=== PATIENT | female | born 2000 | race African-American/Black ===

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

== ENCOUNTER 2019-03-13 06:10 | Emergency (ER) | payer OTHER, SELFPAY ==
[~2019-03-13] VITALS: Ht 160 cm; Wt 74.8 kg
[~2019-03-13 06:10] MED LIST: AMOX500C PO; HYDR-3164 PO
[2019-03-13 06:15] VITALS: BP 123/65
[2019-03-13] MEDS ORDERED: DEXAMETHASONE 4 MG TABLET PO ONE (07:00)
[2019-03-13] MEDS ORDERED: AZITHROMYCIN 250 MG TABLET. PO ONE (07:00)
[2019-03-13] MEDS ORDERED: cefTRIAXone IM 250 MG VIAL IM ONE (07:00)
--- NOTE | 2019-03-13 07:01 | PHYS DOC ---
Past Medical History Past Medical History: Other Additional Past Medical Histor: LUPUS,TBI Past Surgical History: No Surgical History Additional Information: Nonsmoking Alcohol Use: None Drug Use: None Adult General Chief Complaint Chief Complaint: FACE PAIN HPI HPI 18-year-old female presents with report of three-day history of vaginal odor and slight discharge. Patient concern for possible STD. Denies fever or chills. Denies bleeding. Reports she is unsure regarding . Reports last menstrual period approximately 3 weeks ago. Patient also reports past medical history of lupus and for the last 3 weeks has noticed some slight discoloration of her face with some swelling and discomfort. Reports right greater than left. Patient reports she just relocated to the area and is not on her typical lupus medications. Denies any leg swelling or calf tenderness. Denies chest pain or shortness of breath. Denies trauma. Patient also reports irritation to left axilla which has happened in past and is always associated with shaving. Denies fever/chills. Review of Systems Review of Systems Constitutional: Denies fever or chills [] Eyes: Denies change in visual acuity, redness, or eye pain [] HENT: Denies nasal congestion or sore throat [] Respiratory: Denies cough or shortness of breath [] Cardiovascular: Denies chest pain or palpitation GI: Denies abdominal pain, nausea, vomiting, or diarrhea [] /MANAGER DIVISION: Denies dysuria or hematuria; reports vaginal discharge and odor Musculoskeletal: Denies back pain or joint pain [] Integument: Reports racial rash and swelling Neurologic: Denies headache, focal weakness or sensory changes [] Complete systems were reviewed and found to be within normal limits, except as documented in this note. Current Medications Current Medications Current Medications Medications (Trade) Dose Ordered Sig/Inés Start Time Stop Time Status Last Admin Dose Admin Azithromycin (Zithromax) 1,000 mg 1X ONCE 03/13/19 07:00 03/13/19 07:01 DC 03/13/19 07:03 1,000 MG Ceftriaxone Sodium (Rocephin Im) 250 mg 1X ONCE 03/13/19 07:00 03/13/19 07:01 DC 03/13/19 07:03 250 MG Dexamethasone (Decadron) 10 mg 1X ONCE 03/13/19 07:00 03/13/19 07:01 DC 03/13/19 07:03 10 MG Metronidazole (Flagyl) 500 mg 1X ONCE 03/13/19 07:45 03/13/19 07:47 DC 03/13/19 07:43 500 MG Neomycin/ Polymyxin/ Bacitracin (Triple Antibiotic Ointment) 1 pkt 1X ONCE 03/13/19 07:45 03/13/19 07:47 DC 03/13/19 07:43 1 PKT Allergies Allergies Allergies Coded Allergies Type Severity Reaction Last Updated Verified No Known Drug Allergies 01/10/18 No Physical Exam Physical Exam Constitutional: Well developed, well nourished, no acute distress, non-toxic appearance. [] HENT: Normocephalic, atraumatic, oropharynx moist Eyes: Conjunctiva normal, no discharge. [] Neck: Normal range of motion, no tenderness, supple Cardiovascular: Heart rate normal with regular rhythm Lungs & Thorax: Bilateral breath sounds clear to auscultation [] Abdomen: Soft, no tenderness Pelvic: Sales Development Consultant RN, external genitalia normal, white creamy discharge noted in vaginal vault, NO cervicitis noted, no CMT, no adnexal tenderness Skin: Warm, dry, no erythema, mild malar rash noted, left axillary superficial ulceration- no surrounding erythema, facial and tongue piercings noted Back: No tenderness, no CVA tenderness. [] Extremities: No tenderness, ROM intact, no edema. [] Neurologic: Alert and oriented X 3, no focal deficits noted. [] Psychologic: Affect normal, judgement normal, mood normal. [] Current Patient Data Vital Signs Vital Signs Date Time Temp Pulse Resp B/P (MAP) Pulse Ox O2 Delivery O2 Flow Rate FiO2 03/13/19 06:15 97.9 87 16 123/65 (84) 100 Room Air 97.9 Lab Values Laboratory Tests Test 03/13/19 06:30 03/13/19 06:36 Urine Collection Type Unknown Urine Color Yellow Urine Clarity Clear Urine pH 6.0 Urine Specific [place] 1.025 Urine Protein Negative mg/dL (NEG-TRACE) Urine Glucose (UA) Negative mg/dL (NEG) Urine Ketones (Stick) Negative mg/dL (NEG) Urine Blood Small (NEG) Urine Nitrite Negative (NEG) Urine Bilirubin Negative (NEG) Urine Urobilinogen Dipstick 1.0 mg/dL (0.2 mg/dL) Urine Leukocyte Esterase Large (NEG) Urine RBC 3-5 /HPF (0-2) Urine WBC 20-40 /HPF (0-4) Urine Squamous Epithelial Cells Mod /LPF Urine Bacteria 0 /HPF (0-FEW) Urine Trichomonas Present POC Urine HCG, Qualitative Hcg negative (Negative) Microbiology 03/13/19 Wet Prep - Final, Complete EKG EKG [] Radiology/Procedures Radiology/Procedures [] Course & Med Decision Making Course & Med Decision Making Pertinent Lab studies reviewed. (See chart for details) Patient presents with report of facial rash concerning for lupus flare. Empiric steroid provided. Patient also reports concern for possible STD given some vaginal discharge and foul odor. Pelvic exam performed. Chlamydia/Gonorrhea cultures pending. Empiric antibiotics given. Wet mount positive for BV. Flagyl provided. UA with signs of infection. Rx for empiric antibiotics given. Upreg negative. NO CMT or adnexal tenderness noted. Sign of possible folliculitis noted to left axilla. Patient reports lesions occur after shaving. No surrounding erythema and no fluctuance noted. Wound cleaned and dressed with empiric antibiotic ointment applied. Patient stable for discharge with outpatient follow-up with PCP/MANAGER DIVISION. Discussed findings and plan with patient, who acknowledges understanding and agreement. Dragon Disclaimer Dragon Disclaimer This electronic medical record was generated, in whole or in part, using a voice recognition dictation system. Departure Departure Impression: Primary Impression: Bacterial vaginosis Additional Impressions: UTI (urinary tract infection) SLE exacerbation Folliculitis Disposition: HOME, SELF-CARE Condition: STABLE Referrals: UNKNOWN PCP NAME (PCP) Patient Instructions: Bacterial Vaginosis, [id number], Folliculitis, Lupus, Urinary Tract Infection, [id number] Scripts Prednisone (PREDNISONE) 20 Mg Tablet 2 TAB PO DAILY, #8 TAB Start this medication tomorrow. Prov: JORDY RIVAS DO 03/13/19 Metronidazole (FLAGYL) 500 Mg Tablet 500 MG PO BID, #14 TAB Prov: JORDY RIVAS DO 03/13/19 Cephalexin (KEFLEX) 500 Mg Capsule 500 MG PO TID for 7 Days, #21 CAP Prov: JORDY RIVAS DO 03/13/19 Problem Qualifiers Additional Impressions: UTI (urinary tract infection) Urinary tract infection type: acute cystitis Hematuria presence: without hematuria Qualified Codes: N30.00 - Acute cystitis without hematuria JORDY RIVAS DO March 13, 2019 07:01
[2019-03-13 07:06] LABS: BILIRUBIN,URINE NEGATIVE (NEG); CLARITY,URINE CLEAR; COLOR,URINE YELLOW; NITRITE,URINE NEGATIVE (NEG); PROTEIN,URINE NEGATIVE (NEG-TRACE)
[2019-03-13 07:21] LABS: WBC,URINE 20-40 /HPF (0-4)
[2019-03-13 07:22] LABS: BACTERIA,URINE 0 /HPF (0-FEW); SQUAMOUS EPITHELIAL CELL,UR MOD /LPF
[2019-03-13 07:23] LABS: TRICHOMONAS,URINE PRESENT
[2019-03-13] MEDS ORDERED: CEPH-264 PO (07:38)
[2019-03-13] MEDS ORDERED: PRED20TA PO (07:38)
[2019-03-13] MEDS ORDERED: METR500T PO (07:38)
[2019-03-13] MEDS ORDERED: metroNIDAZOLE 500 MG TABLET PO ONE (07:45)
[2019-03-13] MEDS ORDERED: NEOMY/BACITR/POLYMYXIN OINT PACKET. TP ONE (07:45)
[2019-03-14 14:15] LABS: GC PROBE Negative (Negative)
== END 2019-03-13 07:45 | disposition home or self-care (01) ==
LOC: ER 06:10
DX: N30.00 Acute cystitis without hematuria (principal); N76.0 Acute vaginitis; B96.89 Other specified bacterial agents as the cause of diseases classified elsewhere; M32.8 Other forms of systemic lupus erythematosus; L73.8 Other specified follicular disorders
CPT/HCPCS: 81001; 81025; 87086; 87491; 87591; 96372; 99284; J0696; J8540; Q0111; Q0144

== ENCOUNTER 2019-04-27 13:54 | Emergency (ER) | payer SELFPAY ==
[~2019-04-27] VITALS: Ht 160 cm; Wt 74.8 kg
[~2019-04-27 13:54] MED LIST changes: +CEPH-264 PO; +METR500T PO; +PRED20TA PO
[2019-04-27 14:14] VITALS: BP 121/80
[2019-04-27] MEDS ORDERED: PRED20TA PO (14:40)
--- NOTE | 2019-04-27 14:40 | PHYS DOC ---
Past Medical History Past Medical History: Other Additional Past Medical Histor: LUPUS,TBI Past Surgical History: No Surgical History Alcohol Use: None Drug Use: None Adult General Chief Complaint Chief Complaint: OTHER COMPLAINTS HPI HPI Patient is a 18 year old who presents with which she states is lupus flareup. Has butterfly rash on her cheeks bilaterally. States she does not have PCP or specialist follow up. Has been dealing with a lupus flareup since end of March. Denies pain at this time. Took a course of prednisone end of march that helped symptoms. Review of Systems Review of Systems Constitutional: Denies fever or chills [] Eyes: Denies change in visual acuity, redness, or eye pain [] HENT: Denies nasal congestion or sore throat [] Respiratory: Denies cough or shortness of breath [] Cardiovascular: No additional information not addressed in HPI [] GI: Denies abdominal pain, nausea, vomiting, bloody stools or diarrhea [] : Denies dysuria or hematuria [] Musculoskeletal: Denies back pain or joint pain [] Integument: Reports rash or skin lesions [] Neurologic: Denies headache, focal weakness or sensory changes [] Endocrine: Denies polyuria or polydipsia [] Complete systems were reviewed and found to be within normal limits, except as documented in this note. Allergies Allergies Allergies Coded Allergies Type Severity Reaction Last Updated Verified No Known Drug Allergies 01/10/18 No Physical Exam Physical Exam Constitutional: Well developed, well nourished, no acute distress, non-toxic appearance. [] HENT: Normocephalic, atraumatic, bilateral external ears normal, oropharynx moist, no oral exudates, nose normal. [] Eyes: PERRLA, EOMI, conjunctiva normal, no discharge. [] Neck: Normal range of motion, no tenderness, supple, no stridor. [] Cardiovascular:Heart rate regular rhythm, no murmur [] Lungs & Thorax: Bilateral breath sounds clear to auscultation [] Abdomen: Bowel sounds normal, soft, no tenderness, no masses, no pulsatile masses. [] Skin: Warm, dry, no erythema, butterfly rash on cheeks. Back: No tenderness, no CVA tenderness. [] Extremities: No tenderness, no cyanosis, no clubbing, ROM intact, no edema. [] Neurologic: Alert and oriented X 3, normal motor function, normal sensory function, no focal deficits noted. [] Psychologic: Affect normal, judgement normal, mood normal. [] Current Patient Data Vital Signs Vital Signs Date Time Temp Pulse Resp B/P (MAP) Pulse Ox O2 Delivery O2 Flow Rate FiO2 04/27/19 14:14 98.4 75 16 121/80 (94) 96 Room Air 98.4 EKG EKG [] Radiology/Procedures Radiology/Procedures [] Course & Med Decision Making Course & Med Decision Making Pertinent Labs and Imaging studies reviewed. (See chart for details) Appears to be lupus flare. Will put on course of steroids. Discussed with patient the importance of following up with primary care. Dragon Disclaimer Dragon Disclaimer This electronic medical record was generated, in whole or in part, using a voice recognition dictation system. Departure Departure Impression: Primary Impression: Lupus Disposition: 01 HOME, SELF-CARE Condition: STABLE Referrals: NO PCP (PCP) Patient Instructions: Lupus Additional Instructions: Thank you for visiting [facility]. We appreciate you trusting us with your care. If any additional problems come up don't hesitate to return to visit us. Please follow up with your primary care provider so they can plan additional care if needed and know about the problem that you had. If symptoms worsen come back to the Emergency Department. Any concerning symptoms that start such as chest pain, shortness of Air, weakness or numbness on one side of the body, running high fevers or any other concerning symptoms return to the ER. Please fill your medications at any pharmacy and follow the prescription instructions. Please obtain and follow up with PCP this week. Scripts Prednisone (PREDNISONE) 20 Mg Tablet 1 TAB PO BID for 5 Days, #10 TAB Prov: JORDY DONIS APRN 04/27/19 JORDY DONIS APRN Apr 27, 2019 14:40
== END 2019-04-27 14:50 | disposition home or self-care (01) ==
LOC: ER 13:54
DX: M32.9 Systemic lupus erythematosus, unspecified (principal)
CPT/HCPCS: 99283

== ENCOUNTER 2019-09-06 13:27 | Emergency (ER) | payer SELFPAY ==
[~2019-09-06] VITALS: Ht 160 cm; Wt 79.4 kg
[2019-09-06 13:40] VITALS: BP 118/66
[2019-09-06 14:41] LABS: BILIRUBIN,URINE NEGATIVE (NEG); CLARITY,URINE CLEAR; COLOR,URINE YELLOW; NITRITE,URINE NEGATIVE (NEG); PH,URINE 6.5; PROTEIN,URINE NEGATIVE (NEG-TRACE)
[2019-09-06 14:51] LABS: SQUAMOUS EPITHELIAL CELL,UR MOD /LPF
[2019-09-06 14:53] LABS: BACTERIA,URINE MODERATE /HPF (0-FEW); WBC,URINE 20-40 /HPF (0-4)
--- NOTE | 2019-09-06 15:07 | RAD ---
EXAM: Obstetrics sonogram. HISTORY: Cramping and positive home test. TECHNIQUE: Transabdominal and transvaginal sonographic imaging of the pelvis was performed. COMPARISON: None. FINDINGS: The uterus measures 7.0 x 5.0 x 3.0 cm. The endometrial stripe measures 11 mm in thickness. No intrauterine gestational sac is seen. The ovaries are normal in size and demonstrate normal blood flow. There is a complex right ovarian cyst measuring 2.1 cm, likely hemorrhagic in etiology. There is trace pelvic free fluid. IMPRESSION: 1. Suspected 2.1 cm hemorrhagic right ovarian cyst. 2. Trace pelvic free fluid. 3. No evidence of an intrauterine gestation. This may be due to relative early gestation. Correlate with a beta-hCG level and obtained short-term sonographic follow-up to assess viability and exclude ectopic gestation. Electronically signed by: Jami Milan MD (09/06/2019 3:04 PM) [facility]
--- NOTE | 2019-09-06 15:21 | PHYS DOC ---
Past Medical History Past Medical History: Other Additional Past Medical Histor: LUPUS,TBI Past Surgical History: No Surgical History Alcohol Use: None Drug Use: None Adult General Chief Complaint Chief Complaint: TEST [facility] HPI Patient is a 19 year old AA female who presents to the ER with request for testing. Pt states she has taken 3 positive home tests prior to arrival. Her LMP was on 08/11/19. She currently denies any irregular vaginal discharge, vaginal bleeding, dysuria, increased urinary frequency, or hematuria. Pt also denies any fever, low back pain, nausea, vomiting, or diarrhea. Currently she complaints of pelvic pain that she describes as cramping. Pt rates the pain a 6/10 on the pain scale, she denies any alleviating factors. PT is 1, para 0. She does not have an OBGyn. All other ROS is neg unless otherwise noted in HPI. Review of Systems Review of Systems See Above Allergies Allergies Allergies Coded Allergies Type Severity Reaction Last Updated Verified No Known Drug Allergies 01/10/18 No Physical Exam Physical Exam See Above Constitutional: Well developed, well nourished, no acute distress, non-toxic appearance. [] HENT: Normocephalic, atraumatic, bilateral external ears normal, nose normal. [] Eyes: PERRLA, EOMI, conjunctiva normal, no discharge. [] Neck: Normal range of motion, no stridor. [] Cardiovascular:Heart rate regular rhythm, no murmur [] Lungs & Thorax: Bilateral breath sounds clear to auscultation [] Abdomen: Bowel sounds normal, soft, no tenderness, no masses, no pulsatile masses. [] Skin: Warm, dry, no erythema, no rash. [] Back: No tenderness, no CVA tenderness. [] Extremities: No cyanosis, ROM intact, no edema. [] Neurologic: Alert and oriented X 3, no focal deficits noted. [] Psychologic: Affect normal, judgement normal, mood normal. [] Current Patient Data Vital Signs Vital Signs Date Time Temp Pulse Resp B/P (MAP) Pulse Ox O2 Delivery O2 Flow Rate FiO2 09/06/19 13:40 98.3 67 16 118/66 (83) 100 Room Air 98.3 Lab Values Laboratory Tests Test 09/06/19 13:46 09/06/19 14:34 Urine Collection Type Unknown Urine Color Yellow Urine Clarity Clear Urine pH 6.5 Urine Specific [place] 1.025 Urine Protein Negative mg/dL (NEG-TRACE) Urine Glucose (UA) Negative mg/dL (NEG) Urine Ketones (Stick) Negative mg/dL (NEG) Urine Blood Negative (NEG) Urine Nitrite Negative (NEG) Urine Bilirubin Negative (NEG) Urine Urobilinogen Dipstick 1.0 mg/dL (0.2 mg/dL) Urine Leukocyte Esterase Large (NEG) Urine RBC 1-2 /HPF (0-2) Urine WBC 20-40 /HPF (0-4) Urine Squamous Epithelial Cells Mod /LPF Urine Bacteria Moderate /HPF (0-FEW) Urine Mucus Mod /LPF POC Urine HCG, Qualitative Hcg positive (Negative) EKG EKG [] Radiology/Procedures Radiology/Procedures PROCEDURE: OB <14 WKS W/TV EXAM: Obstetrics sonogram. HISTORY: Cramping and positive home test. TECHNIQUE: Transabdominal and transvaginal sonographic imaging of the pelvis was performed. COMPARISON: None. FINDINGS: The uterus measures 7.0 x 5.0 x 3.0 cm. The endometrial stripe measures 11 mm in thickness. No intrauterine gestational sac is seen. The ovaries are normal in size and demonstrate normal blood flow. There is a complex right ovarian cyst measuring 2.1 cm, likely hemorrhagic in etiology. There is trace pelvic free fluid. IMPRESSION: 1. Suspected 2.1 cm hemorrhagic right ovarian cyst. 2. Trace pelvic free fluid. 3. No evidence of an intrauterine gestation. This may be due to relative early gestation. Correlate with a beta-hCG level and obtained short-term sonographic follow-up to assess viability and exclude ectopic gestation.[] Course & Med Decision Making Course & Med Decision Making Pertinent Labs and Imaging studies reviewed. (See chart for details) 1517- Pt signed out AMA before results of UA and US could be discussed. [] Dragon Disclaimer Dragon Disclaimer This electronic medical record was generated, in whole or in part, using a voice recognition dictation system. Departure Departure Impression: Primary Impression: Left against medical advice Disposition: 07 AGAINST MEDICAL ADVICE Condition: STABLE Referrals: RADHA ABEBE Jr, MD, DANIELLE D ACCOUNT DEVELOPMENT MANAGER Sep 06, 2019 15:21
== END 2019-09-06 15:22 | disposition home or self-care (01) ==
LOC: ER 13:27
DX: Z32.00 Encounter for pregnancy test, result unknown (principal); S06.2X9D Diffuse traumatic brain injury with loss of consciousness of unspecified duration, subsequent encounter; M32.9 Systemic lupus erythematosus, unspecified
CPT/HCPCS: 76801; 76817; 81001; 81025; 87086; 99285

== ENCOUNTER 2019-09-21 19:42 | Emergency (ER) | payer OTHER ==
[~2019-09-21] VITALS: Ht 160 cm; Wt 76.2 kg
[2019-09-21 20:21] LABS: BILIRUBIN,URINE NEGATIVE (NEG); CLARITY,URINE CLOUDY; COLOR,URINE AMBER; NITRITE,URINE NEGATIVE (NEG); PROTEIN,URINE 30 mg/dL (NEG-TRACE)
[2019-09-21 20:28] LABS: SQUAMOUS EPITHELIAL CELL,UR MANY /LPF
[2019-09-21 20:30] LABS: BACTERIA,URINE MODERATE /HPF (0-FEW); RBC,URINE >40 /HPF (0-2); WBC,URINE >40 /HPF (0-4)
--- NOTE | 2019-09-21 22:04 | RAD ---
OB <14 WKS W/TV DATE: 09/21/2019 8:10 PM INDICATION: Bleeding. LMP 08/11/2019. COMPARISON: 09/06/2019. TECHNIQUE: Transabdominal ultrasonography of the pelvis was performed. Color Doppler and duplex were utilized as appropriate. FINDINGS: The uterus measures 8.2 x 5.4 x 4. Cm. There is living intrauterine gestation with heart rate of 109 beats per minute. There is small yolk sac present. [place]-rump length measurement of 0.37 cm corresponds with estimated ultrasound gestational age of 6 weeks and 0 days. EDC by ultrasound 05/16/2020. Trace pelvic fluid. The right ovary measures 3.9 x 1.9 x 2.4 cm. The left ovary measures 3.2 x 1.1 x 1.3 cm. No evidence of ovarian torsion. There is normal blood flow to both ovaries by color Doppler with arterial and venous waveforms detected. Right ovarian corpus luteal cyst. IMPRESSION: 1. Single living intrauterine gestation. 2. [place]-rump length corresponds with estimated ultrasound gestational age of 6 weeks and 0 days. Electronically signed by: Edmundo Landa MD (09/21/2019 10:01 PM) [facility]
[2019-09-21 22:05] VITALS: BP 106/61
[2019-09-21] MEDS ORDERED: CEPH500C PO (22:12)
--- NOTE | 2019-09-21 22:12 | PHYS DOC ---
Past Medical History Past Medical History: Other Additional Past Medical Histor: lupus, brain injury (PARAG WARE APRN) Past Surgical History: No Surgical History (PARAG WARE APRN) Alcohol Use: None Drug Use: None (PARAG WARE APRN) Attending Signature I have participated in the care of this patient and I have reviewed and agree with all pertinent clinical information above including history, exam, and recommendations. (MY TAN MD) Adult General Chief Complaint Chief Complaint: VAGINAL BLEEDING [facility] Patient is a 19 year old AA female, who presents to the emergency department with complaints of vaginal bleeding during . Patient states that she has had been having intermittent spotting since being diagnosed as at the beginning of the month. She states that she has not been bleeding heavily enough to saturate a pad only reports blood with wiping after urination. She denies any abdominal pain, cramping, or irregular vaginal discharge. She denies any vaginal odor. Currently denies any pain. Her LMP was on 08/11/19. Patient denies any nausea, vomiting, diarrhea, abdominal pain, low back pain, fever, hematuria, dysuria, or incontinence. She states that she has had increased urinary frequency. 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 All other ROS is neg unless otherwise noted in [facility]. (PAARG WARE APRN) Review of Systems Review of Systems See Above (PARAG WARE APRN) Allergies Allergies Allergies Coded Allergies Type Severity Reaction Last Updated Verified ibuprofen Allergy Intermediate 09/21/19 Yes (MY TAN MD) Physical Exam Physical Exam See Above Constitutional: Well developed, well nourished, no acute distress, non-toxic appearance. [] HENT: Normocephalic, atraumatic, bilateral external ears normal, nose normal. [] Eyes: PERRLA, EOMI, conjunctiva normal, no discharge. [] Neck: Normal range of motion, no stridor. [] Cardiovascular:Heart rate regular rhythm, no murmur [] Lungs & Thorax: Bilateral breath sounds clear to auscultation [] Abdomen: Bowel sounds normal, soft, no tenderness, no masses, no pulsatile masses. [] Skin: Warm, dry, no erythema, no rash. [] Back: No CVA tenderness. [] Extremities: No cyanosis, ROM intact, no edema. [] Neurologic: Alert and oriented X 3, no focal deficits noted. [] Psychologic: Affect normal, judgement normal, mood normal. [] (PARAG WARE APRN) Current Patient Data Vital Signs Vital Signs Date Time Temp Pulse Resp B/P (MAP) Pulse Ox O2 Delivery O2 Flow Rate FiO2 09/21/19 22:05 91 18 106/61 (76) 100 Room Air 09/21/19 19:50 98.8 98.8 (MY TAN MD) Lab Values Laboratory Tests Test 09/21/19 19:40 09/21/19 20:00 09/21/19 20:11 Urine Collection Type Unknown Urine Color [place] Urine Clarity Cloudy Urine pH 6.0 Urine Specific [place] >=1.030 Urine Protein 30 mg/dL (NEG-TRACE) Urine Glucose (UA) Negative mg/dL (NEG) Urine Ketones (Stick) >=80 mg/dL (NEG) Urine Blood Large (NEG) Urine Nitrite Negative (NEG) Urine Bilirubin Negative (NEG) Urine Urobilinogen Dipstick 1.0 mg/dL (0.2 mg/dL) Urine Leukocyte Esterase Moderate (NEG) Urine RBC >40 /HPF (0-2) Urine WBC >40 /HPF (0-4) Urine Squamous Epithelial Cells Many /LPF Urine Bacteria Moderate /HPF (0-FEW) Urine Mucus Marked /LPF Maternal Serum HCG Beta Subunit 71071 mIU/mL (0-5) H POC Urine HCG, Qualitative Hcg positive (Negative) (MY TAN MD) EKG EKG [] (PARAG WARE APRN) Radiology/Procedures Radiology/Procedures PROCEDURE: OB <14 WKS W/TV OB <14 WKS W/TV DATE: 09/21/2019 8:10 PM INDICATION: Bleeding. LMP 08/11/2019. COMPARISON: 09/06/2019. TECHNIQUE: Transabdominal ultrasonography of the pelvis was performed. Color Doppler and duplex were utilized as appropriate. FINDINGS: The uterus measures 8.2 x 5.4 x 4. Cm. There is living intrauterine gestation with heart rate of 109 beats per minute. There is small yolk sac present. [place]-rump length measurement of 0.37 cm corresponds with estimated ultrasound gestational age of 6 weeks and 0 days. EDC by ultrasound 05/16/2020. Trace pelvic fluid. The right ovary measures 3.9 x 1.9 x 2.4 cm. The left ovary measures 3.2 x 1.1 x 1.3 cm. No evidence of ovarian torsion. There is normal blood flow to both ovaries by color Doppler with arterial and venous waveforms detected. Right ovarian corpus luteal cyst. IMPRESSION: 1. Single living intrauterine gestation. 2. [place]-rump length corresponds with estimated ultrasound gestational age of 6 weeks and 0 days. [] (PARAG WARE APRN) Course & Med Decision Making Course & Med Decision Making Pertinent Labs and Imaging studies reviewed. (See chart for details) dx: UTI and , vaginal bleeding in the first trimester . UA is concerning for UTI, ultrasound revealed a single viable intrauterine measuring 6 weeks gestation with a due date of May 162019, heart rate of 109 beats per minute. Patient has history of Rh+ blood type in history. VSS Patient is written for Keflex twice a day 500 mg 7 days. Patient instructed to call Dr. Dailey for follow-up within the next 1-2 days. Advised patient of need for pelvic rest until follow-up. Patient verbalized an understanding of home care, medications, follow-up, and return to ED instructions and was in agreement with the plan of care. [] (PARAG WARE APRN) Dragon Disclaimer Dragon Disclaimer This electronic medical record was generated, in whole or in part, using a voice recognition dictation system. (PARAG WARE APRN) Departure Departure Impression: Primary Impression: UTI (urinary tract infection) in in first trimester Additional Impression: Vaginal bleeding affecting early Disposition: 01 HOME, SELF-CARE Condition: STABLE Referrals: NO PCP (PCP) Patient Instructions: - Urinary Tract Infection, Vaginal Bleeding During , First Trimester Additional Instructions: Fill prescription(s) and use as directed. Avoid bladder irritants such as caffeine, carbonation, and spicy foods. Increase clear fluids. Your HCG level today was 92308. Your babies gestational age by ultrasound is 6 weeks 0 days. Your estimated due date according to ultrasound is 05/16/20. Follow up with Dr. Valenzuela or your OBGyn in 1-2 days to repeat your HCG level. Pelvic rest until follow up appointment. Return to the ER if symptoms worsen. Scripts Cephalexin (CEPHALEXIN) 500 Mg Capsule 1 CAP PO BID for 7 Days, #14 CAP 0 Refills Prov: PARAG WARE APRN 09/21/19 Problem Qualifiers PARAG WARE APRN Sep 21, 2019 22:12 MY TAN MD Sep 22, 2019 18:16
== END 2019-09-21 22:05 | disposition home or self-care (01) ==
LOC: ER 19:42
DX: O23.41 Unspecified infection of urinary tract in pregnancy, first trimester (principal); O46.91 Antepartum hemorrhage, unspecified, first trimester; Z3A.01 Less than 8 weeks gestation of pregnancy; Z88.8 Allergy status to other drugs, medicaments and biological substances
CPT/HCPCS: 36415; 76801; 76817; 81001; 81025; 84702; 87086; 99285-25

== ENCOUNTER 2019-11-26 12:39 | Emergency (ER) | payer OTHER ==
[~2019-11-26] VITALS: Ht 160 cm; Wt 75.0 kg
[~2019-11-26 12:39] MED LIST changes: +CEPH500C PO
[2019-11-26 13:30] VITALS: BP 118/69
--- NOTE | 2019-11-26 13:57 | PHYS DOC ---
Past Medical History Past Medical History: Other Additional Past Medical Histor: lupus, TBI Past Surgical History: No Surgical History Additional Past Surgical Histo: facial, foot, lip biopsy Alcohol Use: None Drug Use: None Adult General Chief Complaint Chief Complaint: MECHANICAL FALL HPI HPI Patient is a 19 year old female with history of lupus and TBI who presents with draining of a fall in . Patient is at 15 weeks of gestation and states she had a fall from a stairs without loss of consciousness or head injury happened about couple of hours prior. ER.. Patient complaining of pain in her lower back and rated her pain 10 over 10(Patient looking very comfortable). Patient denies abdominal pain, vaginal bleeding, urinary symptoms, nausea and vomiting, fever and chills. Patient has[facility] at [facility]. Review of Systems Review of Systems Constitutional: Denies fever or chills [] Eyes: Denies change in visual acuity, redness, or eye pain [] HENT: Denies nasal congestion or sore throat [] Respiratory: Denies cough or shortness of breath [] Cardiovascular: No additional information not addressed in HPI [] GI: Denies abdominal pain, nausea, vomiting, bloody stools or diarrhea [] : Denies dysuria or hematuria [] Musculoskeletal: Reports back pain, denies joint pain [] Integument: Denies rash or skin lesions [] Neurologic: Denies headache, focal weakness or sensory changes [] Endocrine: Denies polyuria or polydipsia [] All other systems were reviewed and found to be within normal limits, except as documented in this note. Current Medications Current Medications Current Medications Medications (Trade) Dose Ordered Sig/[facility] Start Time Stop Time Status Last Admin Dose Admin Acetaminophen (Tylenol) 650 mg 1X ONCE 11/26/19 14:15 11/26/19 14:16 DC 11/26/19 13:51 650 MG Allergies Allergies Allergies Coded Allergies Type Severity Reaction Last Updated Verified ibuprofen Allergy Intermediate 09/21/19 Yes Physical Exam Physical Exam Constitutional: Well developed, well nourished, no distress, non-toxic appearance. [] HENT: Normocephalic, atraumatic. Eyes: PERRLA, EOMI, conjunctiva normal, no discharge. [] Neck: Normal range of motion, no tenderness, supple, no stridor. [] Cardiovascular:Heart rate regular rhythm, no murmur [] Lungs & Thorax: Bilateral breath sounds clear to auscultation [] Abdomen: Bowel sounds normal, soft, no tenderness, no masses, no pulsatile masses. [] Skin: Warm, dry, butterfly facial rash Back: No tenderness, no CVA tenderness. [] Extremities: No tenderness, no cyanosis, no clubbing, ROM intact, no edema. [] Neurologic: Alert and oriented X 3, no focal deficits noted. [] Psychologic: Affect normal, judgement normal, mood normal. [] Current Patient Data Vital Signs Vital Signs Date Time Temp Pulse Resp B/P (MAP) Pulse Ox O2 Delivery O2 Flow Rate FiO2 11/26/19 13:30 95 17 99 11/26/19 12:59 97.9 118/69 (85) Room Air 97.9 Lab Values Laboratory Tests Test 11/26/19 13:00 Urine Collection Type Unknown Urine Color Yellow Urine Clarity Clear Urine pH 7.5 Urine Specific [place] 1.010 Urine Protein Negative mg/dL (NEG-TRACE) Urine Glucose (UA) Negative mg/dL (NEG) Urine Ketones (Stick) Negative mg/dL (NEG) Urine Blood Negative (NEG) Urine Nitrite Negative (NEG) Urine Bilirubin Negative (NEG) Urine Urobilinogen Dipstick 1.0 mg/dL (0.2 mg/dL) Urine Leukocyte Esterase Large (NEG) Urine RBC 0 /HPF (0-2) Urine WBC 5-10 /HPF (0-4) Urine Squamous Epithelial Cells Mod /LPF Urine Bacteria Few /HPF (0-FEW) EKG EKG [] Radiology/Procedures Radiology/Procedures [][facility] [address] [place] [address] IMAGING REPORT Signed PATIENT: CECE LOPEZ SACCOUNT: [id number] : 2000 LOCATION: ER AGE: 19 SEX: F EXAM STATUS: REG ER ORD. PHYSICIAN: KELLI EDUARDO MD REASON: fall from stairs PROCEDURE: PREG MORE THAN OR EQ TO 14 WKS PREG MORE THAN OR EQ TO 14 WKS History: Fall down steps Comparison: September 21, 2019 Findings: Multiple sonographic images of the uterus are submitted. Cervix measured 4.2 cm in length. There is breech presentation of the single intrauterine fetus. There is anterior placenta. There is demonstrable cardiac activity 160 bpm. anatomy is not well visualized at this age of the . Subjectively amniotic fluid volume is within normal limits. Maternal ovaries are not demonstrated on this exam. No free fluid is demonstrated. Biometry data are as follows: Biparietal diameter 3.17 cm corresponds 15 weeks 6 days Head circumference 11.33 cm corresponds 15 weeks 4 days Abdominal circumference 9.8 cm corresponds 15 weeks 6 days Femur length 1.74 cm corresponds 15 weeks 1 day And just ultrasound age 15 weeks 4 days with estimated delivery date of 05/15/2020. There has been adequate interval growth. LMP age 15 weeks 2 days with estimated delivery date of 05/17/2020. HC/AC ratio 1.16 within normal limits. Impression: 1. There is breech presentation of the single, viable, intrauterine fetus. Electronically signed by: Jason Cross MD (11/26/2019 2:27 PM) [facility] DICTATED and SIGNED BY: JASON CROSS MD DATE: 11/26/191426 Course & Med Decision Making Course & Med Decision Making Pertinent Labs and Imaging studies reviewed. (See chart for details) Evaluation of patient in ER showed 19-year-old female patient at 15 weeks of gestation with complaining of a fall and injury to her back. Patient had unremarkable physical exam without sign of injury in her back. Patient had normal range of motion lumbar spine. The OB ultrasound did not show acute find ing. UA showed UTI without blood. Patient treated with Tylenol with improvement of her pain. Patient was advised to take [id number] Tylenol and increase fluid intake and follow up with her primary care physician and CHEMISTRY LABORATORY TECHNICIAN. Keflex prescription was given. Dragon Disclaimer Dragon Disclaimer This electronic medical record was generated, in whole or in part, using a voice recognition dictation system. Departure Departure Impression: Primary Impression: Fall Additional Impressions: Urinary tract infection during Acute lumbosacral myofascial strain Disposition: HOME, SELF-CARE (at 1435) Condition: IMPROVED Referrals: NO PCP (PCP) Patient Instructions: ABCs of , Fall Prevention and Home Safety, Lumbosacral Strain, - Urinary Tract Infection Additional Instructions: Drink plenty of liquids Follow-up with your CHEMISTRY LABORATORY TECHNICIAN physician in 3-5 days Return to ER if not getting better Apply ice on your back May take [id number] Tylenol as needed for pain Thank you for visiting [facility]. We appreciate you trusting us with your care. If any additional problems come up don't hesitate to return to visit us. Please follow up with your primary care provider so they can plan additional care if needed and know about the problem that you had. If symptoms worsen come back to the Emergency Department. Any concerning symptoms that start such as chest pain, shortness of air, weakness or numbness on one side of the body, running high fevers or any other concerning symptoms return to the ER. Scripts Cephalexin (KEFLEX) 500 Mg Capsule 1 CAP PO Q8HRS, #21 CAP 0 Refills Prov: KELLI EDUARDO MD 11/26/19 Problem Qualifiers Primary Impression: Fall Encounter type: initial encounter Qualified Codes: W19.XXXA - Unspecified fall, initial encounter Additional Impressions: Urinary tract infection during Trimester: second trimester Qualified Codes: O23.42 - Unspecified infection of urinary tract in , second trimester Acute lumbosacral myofascial strain Encounter type: sequela Qualified Codes: S39.012S - Strain of muscle, fascia and tendon of lower back, sequela KELLI EDUARDO MD Nov 26, 2019 13:57
[2019-11-26 14:02] LABS: BILIRUBIN,URINE NEGATIVE (NEG); CLARITY,URINE CLEAR; COLOR,URINE YELLOW; NITRITE,URINE NEGATIVE (NEG); PH,URINE 7.5; PROTEIN,URINE NEGATIVE (NEG-TRACE)
[2019-11-26 14:12] LABS: BACTERIA,URINE FEW /HPF (0-FEW); RBC,URINE 0 /HPF (0-2); SQUAMOUS EPITHELIAL CELL,UR MOD /LPF
[2019-11-26] MEDS ORDERED: ACETAMINOPHEN 325 MG TABLET. PO ONE (14:15)
--- NOTE | 2019-11-26 14:30 | RAD ---
PREG MORE THAN OR EQ TO 14 WKS History: Fall down steps Comparison: September 21, 2019 Findings: Multiple sonographic images of the uterus are submitted. Cervix measured 4.2 cm in length. There is breech presentation of the single intrauterine fetus. There is anterior placenta. There is demonstrable cardiac activity 160 bpm. anatomy is not well visualized at this age of the . Subjectively amniotic fluid volume is within normal limits. Maternal ovaries are not demonstrated on this exam. No free fluid is demonstrated. Biometry data are as follows: Biparietal diameter 3.17 cm corresponds 15 weeks 6 days Head circumference 11.33 cm corresponds 15 weeks 4 days Abdominal circumference 9.8 cm corresponds 15 weeks 6 days Femur length 1.74 cm corresponds 15 weeks 1 day And just ultrasound age 15 weeks 4 days with estimated delivery date of 05/15/2020. There has been adequate interval growth. LMP age 15 weeks 2 days with estimated delivery date of 05/17/2020. HC/AC ratio 1.16 within normal limits. Impression: 1. There is breech presentation of the single, viable, intrauterine fetus. Electronically signed by: Edmundo Ramirez MD (11/26/2019 2:27 PM) [facility]
[2019-11-26] MEDS ORDERED: CEPH-264 PO (14:37)
== END 2019-11-26 14:45 | disposition home or self-care (01) ==
LOC: ER 12:39
DX: O9A.212 Injury, poisoning and certain other consequences of external causes complicating pregnancy, second trimester (principal); S39.012A Strain of muscle, fascia and tendon of lower back, initial encounter; O23.42 Unspecified infection of urinary tract in pregnancy, second trimester; M32.9 Systemic lupus erythematosus, unspecified; Z87.820 Personal history of traumatic brain injury; Z88.8 Allergy status to other drugs, medicaments and biological substances; W18.39XA Other fall on same level, initial encounter; Y93.89 Activity, other specified; Y92.89 Other specified places as the place of occurrence of the external cause; Y99.8 Other external cause status
CPT/HCPCS: 76805; 81001; 87086; 99285-25